=== PATIENT | female | born 1975 | race Caucasian/White ===

== ENCOUNTER 2018-06-05 09:55 | Emergency (ER) | payer OTHER ==
[~2018-06-05] VITALS: Ht 160 cm; Wt 82.0 kg
[2018-06-05] MEDS ORDERED: MORPHINE SULFATE 4 MG/ML, 1ML IVPush PRN (10:30)
[2018-06-05] MEDS ORDERED: SODIUM CHLORIDE FLUSH 10ML SYR IVF ONE (10:30)
[2018-06-05] MEDS ORDERED: TIZA2TAB PO (10:52)
[2018-06-05] MEDS ORDERED: TIZA4TAB PO (10:52)
[2018-06-05] MEDS ORDERED: PREG75CA PO (10:54)
[2018-06-05] MEDS ORDERED: FIORCET (10:54)
[2018-06-05] MEDS ORDERED: FIORICET (10:54)
[2018-06-05] MEDS ORDERED: PROM12.55 PO (10:55)
[2018-06-05] MEDS ORDERED: MORPHINE SULFATE 4 MG/ML, 1ML ONE (11:10)
[2018-06-05 11:30] LABS: BASOPHILS # (AUTO) 0.09 x10^3/uL (0-0.1); BASOPHILS % (AUTO) 1 % (0-1); EOSINOPHILS # (AUTO) 0.08 x10^3/uL (0-0.4); EOSINOPHILS % (AUTO) 1 % (1-7); LYMPHOCYTES # (AUTO) 2.19 x10^3/uL (1-3.4); LYMPHOCYTES % (AUTO) 24 % (22-44); MD NO; MEAN CORPUSCULAR HEMOGLOBIN 30.5 pg (27.0-34.8); MEAN CORPUSCULAR HGB CONC 34.5 g/dL (32.4-35.8); MEAN CORPUSCULAR VOLUME 88.4 fL (80-100); MEAN PLATELET VOLUME 9.3 fL (7.4-10.4); MONOCYTES # (AUTO) 0.42 x10^3/uL (0.2-0.8); MONOCYTES % (AUTO) 5 % (2-9); NEUTROPHILS # (AUTO) 6.41 x10^3/uL (1.8-6.8); NEUTROPHILS % (AUTO) 70 % (42-75); PLATELET COUNT 322 x10^3/uL (130-400); RED BLOOD COUNT 4.61 x10^6/uL (3.82-5.3); RED CELL DISTRIBUTION WIDTH 12.1 % (9.6-15.2)
[2018-06-05 11:34] LABS: ALANINE AMINOTRANSFERASE 44 U/L (12-78); ANION GAP 9 mmol/L (5-15); CALCIUM 8.8 mg/dL (8.5-10.1); CHLORIDE 109 mmol/L (98-107); CREATININE 0.98 mg/dL (0.55-1.02)
[2018-06-05 11:36] LABS: MICROSCOPIC AUTO
[2018-06-05 11:37] LABS: CULTURE INDICATED? YES
[2018-06-05 11:37] LABS: ALKALINE PHOSPHATASE 53 U/L (45-117); BILIRUBIN,TOTAL 0.4 mg/dL (0.2-1.0); TOTAL PROTEIN 7.3 g/dL (6.4-8.2)
[2018-06-05 13:22] VITALS: BP 164/86
== END 2018-06-05 13:55 | disposition home or self-care (01) ==
LOC: ED 10:28
DX: R10.84 Generalized abdominal pain (principal); R11.2 Nausea with vomiting, unspecified
CPT/HCPCS: 36415; 74022; 80053; 81001; 81025; 83605; 83690; 85025; 87040; 87086; 96374